=== PATIENT | female | born 1985 | race Caucasian/White ===

== ENCOUNTER 2017-07-22 03:59 | Emergency (ER) | payer MEDICAID | END 2017-07-22 04:35 | disposition home or self-care (01) | LOC: D.ER 03:59 | DX: K04.7 Periapical abscess without sinus (principal); K08.89 Other specified disorders of teeth and supporting structures; F17.200 Nicotine dependence, unspecified, uncomplicated ==

== ENCOUNTER 2020-12-02 20:27 | Emergency (ER) | payer OTHER ==
[~2020-12-02] VITALS: Ht 152.4 cm; Wt 61.4 kg
[2020-12-02 20:43] VITALS: BP 125/71; Ht 152.4 cm; Wt 61.4 kg
[2020-12-02] MEDS ORDERED: BUPRENORPHIN-N1 EACH SL (20:45)
[2020-12-02] MEDS ORDERED: VALTREX1000 MG PO (21:00)
== END 2020-12-02 21:16 | disposition home or self-care (01) ==
LOC: D.ER 20:27
DX: B00.9 Herpesviral infection, unspecified (principal)